=== PATIENT | male | born 1975 | race African-American/Black ===

== ENCOUNTER 2018-05-28 20:12 | Emergency (ER) | payer SELFPAY ==
[2018-05-28] MEDS ORDERED: NA CHLORIDE 0.9% 1,000 ML ONE (21:32)
[2018-05-28 21:51] LABS: Absolute Lymphocytes (CBC) 0.4 K/uL (0.7-4.9); Absolute Monocytes 0.5 K/uL (0.1-1.3); Absolute Neutrophil 7.9 K/uL (1.8-8.0); Basophils % 0.8 % (0-1.3); Eosinophils % 0.1 % (0-4.4); Hematocrit 44.6 % (39.6-49.0); Lymphocytes % 4.7 % (15.3-44.8); MCH 31.3 pg (27.0-35.0); MCV 92.5 fL (80-100); MPV 10.6 fL (7.6-11.3); Monocytes % 6.1 % (3.3-12.3); RBC Red Blood Cell Count 4.82 M/uL (4.33-5.43)
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
[2018-05-28 22:10] LABS: Blood Morphology Comment NOT SEEN (NOT SEEN); Platelet Estimate ADEQ; Urine White Blood Cell Casts OK
[2018-05-28 22:11] LABS: BUN Blood Urea Nitrogen 10 mg/dL (7-18); Bicarbonate 23 mmol/L (21-32); Glucose Level 97 mg/dL (74-106); Potassium 4.6 mmol/L (3.5-5.1); Sodium Level 138 mmol/L (136-145)
[2018-05-28] MEDS ORDERED: HYDROCODONE/APAP 5/325 MG TAB ONE (22:27)
[2018-05-28] MEDS ORDERED: KETOROLAC 30 MG/ML INJ ONE (22:27)
--- NOTE | 2018-05-29 12:35 | EKG ---
Test Date: 2018-05-28 Test Time: 20:22:38 Business Investor: YOLANDA MEASUREMENT RESULTS: Intervals: Rate: 88 [place]: 156 QRSD: 84 QT: 390 QTc: 471 [place]: P: 81 [place]: 156 QRS: 76 T: 75 INTERPRETIVE STATEMENTS: Normal sinus rhythm Normal ECG No previous ECG available for comparison Electronically Signed On 05-29-18 12:32:54 APPLIQUE CUTTER by Fernando Keene
== END 2018-05-28 22:59 | disposition home or self-care (01) ==
LOC: ER 20:12
DX: S22.41XA Multiple fractures of ribs, right side, initial encounter for closed fracture (principal); V18.0XXA Pedal cycle driver injured in noncollision transport accident in nontraffic accident, initial encounter; Y92.410 Unspecified street and highway as the place of occurrence of the external cause; Y93.89 Activity, other specified; F17.210 Nicotine dependence, cigarettes, uncomplicated
CPT/HCPCS: 36415; 70450; 71250; 72125; 80048; 85025; 93005; 96360; 96361; 96372; 99284; J7030

== ENCOUNTER 2019-08-06 05:36 | Emergency (ER) | payer SELFPAY ==
--- NOTE | 2019-08-06 07:55 | RAD REPORT ---
EXAM DESCRIPTION: RAD - Hip Left 2 View - 08/06/2019 6:39 am CLINICAL HISTORY: Fall, left hip pain COMPARISON: None. FINDINGS: AP and frogleg views of the left hip were obtained. There is no fracture or dislocation. N o acute or destructive bony process seen. Small rounded bone density adjacent to the superior acetab ular rim is not suspected to be acute. No soft tissue abnormality. IMPRESSION: Negative left hip examination for acute or significant findings. Continued, unexplained symptoms can be further addressed with MR imaging of the left hip.
--- NOTE | 2019-08-06 08:24 | RAD REPORT ---
EXAM DESCRIPTION: RAD - Femur Left - 08/06/2019 7:34 am CLINICAL HISTORY: Persistent hip and leg pain following fall COMPARISON: None. FINDINGS: No fracture changes are identifiable. Small rounded bone density along the superior acetab ular rim is not suspected to be an acute bone avulsion. There is no dislocation or periosteal reacti on noted. No acute or suspicious bony finding. No air or foreign body in the soft tissues. No signifi cant soft tissue finding identifiable. IMPRESSION: Negative left femur examination for acute or significant finding.
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
--- NOTE | 2019-08-06 08:28 | EDPHYS ---
Physician Documentation [facility] Name: Hugo Wyatt Jr Age: 44 yrs Sex: Male : 1975 Arrival Date: 08/06/2019 Time: 05:37 Bed 15 Private MD: ED Physician Austin Medina HPI: 08/06 07:32 This 44 yrs old Black Male presents to ER via Ambulatory with complaints of Hip Pain. rn 07:36 The patient or guardian reports an injury, pain. that occurred outdoors, sustained from rn a fall, There is no obvious deformity, The patient is able to self ambulate. The patient is able to bear their full body weight. The complaints affect the left hip. Onset: The symptoms/episode began/occurred 3 week(s) ago. Modifying factors: The symptoms are alleviated by nothing, the symptoms are aggravated by any movement, weight bearing. Severity of symptoms: At their worst the symptoms were moderate, in the emergency department the symptoms are unchanged. The patient has not experienced similar symptoms in the past. Reports around [place] fell, slipped on concrete, landed on left side, reports left hip and left thigh pain. Hurts to ambulate. No other injury. No back pain. Doesn't feel like anything broken.. Historical: - Allergies: 05:49 No Known Allergies; ea - Home Meds: 05:49 None [Active]; ea - PMHx: 05:49 Seizures; ea - PSHx: 05:49 None; ea - Immunization history:: Adult Immunizations up to date. - Social history:: Smoking status: Patient reports the use of cigarette tobacco products, smokes one-half pack cigarettes per day. - Ebola Screening: : No symptoms or risks identified at this time. - Family history:: not pertinent. - Hospitalizations: : No recent hospitalization is reported. ROS: 07:36 Constitutional: Negative for fever, chills, and weight loss, Eyes: Negative for injury, rn pain, redness, and discharge, Neck: Negative for injury, pain, and swelling, Cardiovascular: Negative for chest pain, palpitations, and edema, Respiratory: Negative for shortness of breath, cough, wheezing, and pleuritic chest pain, Abdomen/GI: Negative for abdominal pain, nausea, vomiting, diarrhea, and constipation, Back: Negative for injury and pain, MS/Extremity: + left hip and thigh pain Skin: Negative for injury, rash, and discoloration, Neuro: Negative for headache, weakness, numbness, tingling, and seizure. Exam: 07:36 Constitutional: This is a well developed, well nourished patient who is awake, alert, rn and in no acute distress. Head/Face: Normocephalic, atraumatic. Neck: Trachea midline. Supple, full range of motion without nuchal rigidity, or vertebral point tenderness. Chest/axilla: Normal chest wall appearance and motion. Nontender with no deformity. No lesions are appreciated. Back: No spinal tenderness. No costovertebral tenderness. Full range of motion. Skin: Warm, dry with normal turgor. Normal color with no rashes, no lesions, and no evidence of cellulitis. MS/ Extremity: Pulses equal, no cyanosis. Neurovascular intact. + pain with ROM left hip, no focal tenderness below left knee, + mild tenderness left anterior thigh without swelling or discoloration, no deformity. Neuro: Awake and alert, GCS 15, oriented to person, place, time, and situation. Cranial nerves II-XII grossly intact. Motor strength 5/5 in all extremities. Sensory grossly intact. Vital Signs: 05:49 BP 157 / 99; Pulse 88; Resp 16; Temp 97.2; Pulse Ox 100% ; Weight 79.38 kg; Height 6 ea ft. 1 in. (185.42 cm); Pain 9/10; 06:43 BP 157 / 95; Pulse 78; Resp 18; Pulse Ox 98% on R/A; ea 05:49 Body Mass Index 23.09 (79.38 kg, 185.42 cm) ea MDM: 06:59 Patient medically screened. rn 08:25 Differential diagnosis: hip fracture, intertrochanteric fracture, femoral neck rn fracture, femoral shaft fracture, bursitis. Data reviewed: vital signs, nurses notes, radiologic studies, plain films, and as a result, I will discharge patient. Test interpretation: by ED physician or midlevel provider: plain radiologic studies, Xray left hip and femur neg for acute fracture/dislocation. Counseling: I had a detailed discussion with the patient and/or guardian regarding: the historical points, exam findings, and any diagnostic results supporting the discharge/admit diagnosis, radiology results, the need for outpatient follow up, to return to the emergency department if symptoms worsen or persist or if there are any questions or concerns that arise at home. Special discussion: I discussed with the patient/guardian in detail that at this point there is no indication for admission to the hospital. It is understood, however, that if the symptoms persist or worsen the patient needs to return immediately for re-evaluation. ED course: If persists, recommend MRI.. 08/06 06:22 Order name: XRAY Hip LEFT 2 view; Complete Time: 08:22 ea 08/06 07:07 Order name: XRAY Femur LEFT; Complete Time: 08:25 ss Administered Medications: No medications were administered Disposition: 08/06/19 08:28 Discharged to Home. Impression: Contusion of left hip, Contusion of left thigh. - Condition is Stable. - Discharge Instructions: Contusion, Hip Pain. - Medication Reconciliation Form, Thank You Letter, Antibiotic Education, Prescription Opioid Use, Work release form form. - Follow up: Private Physician; When: As needed; Reason: Recheck today's complaints, Re-evaluation by your physician. - Problem is an ongoing problem. - Symptoms have improved. Signatures: Dispatcher [employer] EDMS Austin Medina MD MD rn Smirch, Shelby, RN RN ss Antunez, Elena, RN RN ea Corrections: (The following items were deleted from the chart) 08:44 08:28 08/06/2019 08:28 Discharged to Home. Impression: Contusion of left hip; Contusion ss of left thigh. Condition is Stable. Forms are Medication Reconciliation Form, Thank You Letter, Antibiotic Education, Prescription Opioid Use. Follow up: Private Physician; When: As needed; Reason: Recheck today's complaints, Re-evaluation by your physician. Problem is an ongoing problem. Symptoms have improved. rn
[2019-08-06 08:50] VITALS: TEMP 97.2
[2019-08-06 08:51] VITALS: BP 157/95; O2SAT 98
== END 2019-08-06 08:44 | disposition home or self-care (01) ==
LOC: ER 05:36
DX: S70.02XA Contusion of left hip, initial encounter (principal); S70.12XA Contusion of left thigh, initial encounter; W01.198A Fall on same level from slipping, tripping and stumbling with subsequent striking against other object, initial encounter; Y93.01 Activity, walking, marching and hiking; Y92.89 Other specified places as the place of occurrence of the external cause; F17.210 Nicotine dependence, cigarettes, uncomplicated
CPT/HCPCS: 99283

== ENCOUNTER 2019-12-12 10:42 | Emergency (ER) | payer OTHER, SELFPAY ==
[2019-12-12] MEDS ORDERED: KETOROLAC 30 MG/ML INJ ONE (11:22)
[2019-12-12] MEDS ORDERED: dexAMETHasone 10 MG/ML VIAL ONE (11:22)
--- NOTE | 2019-12-12 12:14 | RAD REPORT ---
EXAM DESCRIPTION: RAD - Thoracic Spine Ap/Lat - 12/12/2019 11:53 am CLINICAL HISTORY: PAIN Radiculopathy COMPARISON: No comparisons FINDINGS: The thoracic spine vertebral body heights and disc spaces are largely maintained. No acute compression fracture. No significant malalignment. IMPRESSION: No acute finding demonstrated.
[2019-12-12 14:06] VITALS: TEMP 98; O2SAT 99
[2019-12-12 14:07] VITALS: BP 141/99
--- NOTE | 2019-12-14 17:56 | EDPHYS ---
Physician Documentation [facility] Name: Hugo Wyatt Jr Age: 44 yrs Sex: Male : 1975 Arrival Date: 12/12/2019 Time: 10:45 Bed 2 Private MD: ED Physician Kaden Castillo HPI: 12/11 12:01 This 44 yrs old Black Male presents to ER via EMS with complaints of Back Pain, Leg jr8 Pain. 12:02 The patient presents with pain that is acute. The symptoms are located in the lumbar jr8 area, left low back and left mid back. Onset: The symptoms/episode began/occurred acutely, today. The pain radiates to the left leg. Associated signs and symptoms: The patient has no apparent associated signs or symptoms. The problem was sustained by pulling down on large bar. Modifying factors: The patient symptoms are alleviated by nothing, the patient symptoms are aggravated by any movement. Severity of symptoms: At their worst the symptoms were moderate, in the emergency department the symptoms are unchanged. The patient has not experienced similar symptoms in the past. The patient has not recently seen a physician. Patient while at work was pulling down on large chain bar. [place] pop in back. Since then has had pain to left back . Historical: - Allergies: 10:49 No Known Allergies; sv - Home Meds: 10:49 None [Active]; sv - PMHx: 10:49 Seizures; compression fx; sv - PSHx: 10:49 neck; sv - Immunization history:: Adult Immunizations up to date. - Social history:: Smoking status: . ROS: 12:02 Eyes: Negative for injury, pain, redness, and discharge, ENT: Negative for injury, jr8 pain, and discharge, Neck: Negative for injury, pain, and swelling, Cardiovascular: Negative for chest pain, palpitations, and edema, Respiratory: Negative for shortness of breath, cough, wheezing, and pleuritic chest pain, Abdomen/GI: Negative for abdominal pain, nausea, vomiting, diarrhea, and constipation, MS/Extremity: Negative for injury and deformity, Skin: Negative for injury, rash, and discoloration, Neuro: Negative for headache, weakness, numbness, tingling, and seizure. 12:02 Back: Positive for decreased range of motion, pain at rest, pain with movement, radiated pain. Exam: 12:11 Eyes: Pupils equal round and reactive to light, extra-ocular motions intact. Lids and jr8 lashes normal. Conjunctiva and sclera are non-icteric and not injected. Cornea within normal limits. Periorbital areas with no swelling, redness, or edema. ENT: Nares patent. No nasal discharge, no septal abnormalities noted. Tympanic membranes are normal and external auditory canals are clear. Oropharynx with no redness, swelling, or masses, exudates, or evidence of obstruction, uvula midline. Mucous membranes moist. Neck: Trachea midline, no thyromegaly or masses palpated, and no cervical lymphadenopathy. Supple, full range of motion without nuchal rigidity, or vertebral point tenderness. No Meningismus. Chest/axilla: Normal chest wall appearance and motion. Nontender with no deformity. No lesions are appreciated. Cardiovascular: Regular rate and rhythm with a normal S1 and S2. No gallops, murmurs, or rubs. Normal PMI, no JVD. No pulse deficits. Respiratory: Lungs have equal breath sounds bilaterally, clear to auscultation and percussion. No rales, rhonchi or wheezes noted. No increased work of breathing, no retractions or nasal flaring. Abdomen/GI: Soft, non-tender, with normal bowel sounds. No distension or tympany. No guarding or rebound. No evidence of tenderness throughout. Skin: Warm, dry with normal turgor. Normal color with no rashes, no lesions, and no evidence of cellulitis. MS/ Extremity: Pulses equal, no cyanosis. Neurovascular intact. Full, normal range of motion. Neuro: Awake and alert, GCS 15, oriented to person, place, time, and situation. Cranial nerves II-XII grossly intact. Motor strength 5/5 in all extremities. Sensory grossly intact. Cerebellar exam normal. Normal gait. 12:11 Back: pain, that is moderate, of the left low back and left mid back, ROM is painful, normal spinal alignment noted, CVA tenderness, is absent, vertebral tenderness, is not appreciated, muscle spasm, is appreciated in the left low back and left mid back, Mild tenderness also noted to left SI joint region . Vital Signs: 10:39 BP 136 / 87; Pulse 94; Resp 15; Temp 98.8; Pulse Ox 100% ; Weight 80.74 kg; Height 6 sv ft. 1 in. (185.42 cm); Pain 8/10; 12:11 BP 144 / 100; Pulse 90; Resp 16; Pulse Ox 96% ; sv 12:52 BP 136 / 104; Pulse 86; Resp 14; Temp 98; Pulse Ox 99% on R/A; Pain 3/10; ch 13:55 BP 141 / 99; Pulse 88; Resp 16; Pulse Ox 99% ; sv 10:39 Body Mass Index 23.48 (80.74 kg, 185.42 cm) sv MDM: 10:46 Patient medically screened. jr8 13:33 Data reviewed: vital signs, nurses notes, radiologic studies, plain films, and as a jr8 result, I will discharge patient. Data interpreted: Pulse oximetry: on room air is 99 %. Interpretation: normal. Counseling: I had a detailed discussion with the patient and/or guardian regarding: the presence of at least one elevated blood pressure reading (>120/80) during this emergency department visit, radiology results, the need for outpatient follow up, a family practitioner, to return to the emergency department if symptoms worsen or persist or if there are any questions or concerns that arise at home. Response to treatment: the patient's symptoms have markedly improved after treatment. 12/11 11:12 Order name: XRAY Thoracic Spine (Ap/lat); Complete Time: 12:26 jr8 12/11 11:12 Order name: IV; Complete Time: 11:35 jr8 Administered Medications: 11:20 Drug: TORadol - Ketorolac 15 mg Route: IVP; Site: right antecubital; sv 12:08 Follow up: Response: No adverse reaction sv 11:22 Drug: Decadron - Dexamethasone 10 mg Route: IVP; Site: right antecubital; sv 12:08 Follow up: Response: No adverse reaction sv 12:08 Drug: Robaxin 1 grams Route: IVPB; Infused Over: 1 hrs; Site: right antecubital; sv 13:10 Follow up: Response: No adverse reaction; IV Status: Completed infusion; IV Intake: sv 100ml Disposition: 15:35 Co-signature as Attending Physician, Kaden Castillo MD I agree with the assessment and kdr plan of care. Disposition: 12/12/19 13:35 Discharged to Home. Impression: Low back pain, Muscle spasm of back. - Condition is Stable. - Discharge Instructions: Back Pain, Adult, Musculoskeletal Pain, Heat Therapy. - Prescriptions for Ibuprofen 800 mg Oral Tablet - take 1 tablet by ORAL route every 12 hours As needed take with food; 20 tablet. Robaxin 500 mg Oral Tablet - take 2 tablet by ORAL route every 6 hours As needed; 40 tablet. Medrol (Mohan) 4 mg Oral Tablets, Dose Pack - take 1 tablet by ORAL route as directed - follow package instructions; 1 packet. - Work release form, Medication Reconciliation Form, Thank You Letter, Antibiotic Education, Prescription Opioid Use form. - Follow up: Private Physician; When: Upon discharge from the Emergency Department; Reason: Recheck today's complaints, Continuance of care, Re-evaluation by your physician. - Problem is new. - Symptoms have improved. Signatures: Dispatcher [employer] Francia Farooq RN RN Kaden Hardy MD MD kdr Roszak, Josh, PA PA jr8 Corrections: (The following items were deleted from the chart) 13:56 13:35 12/12/2019 13:35 Discharged to Home. Impression: Low back pain; Muscle spasm of sv back. Condition is Stable. Forms are Medication Reconciliation Form, Thank You Letter, Antibiotic Education, Prescription Opioid Use. Follow up: Private Physician; When: Upon discharge from the Emergency Department; Reason: Recheck today's complaints, Continuance of care, Re-evaluation by your physician. Problem is new. Symptoms have improved. jr8
--- NOTE | 2019-12-14 17:56 | ER ---
Nurse's Notes [facility] Name: Hugo Wyatt Jr Age: 44 yrs Sex: Male : 1975 Arrival Date: 12/12/2019 Time: 10:45 Bed 2 Private MD: Diagnosis: Low back pain;Muscle spasm of back Presentation: 12/11 10:39 Chief complaint: EMS states: pt was at work trying to loosen up a chain and felt sv something pull, c/o neck, back, and left leg pain. Denies fall or head injury and LOC. BP 145/95 HR-99 97% RA. Coronavirus screen: Proceed with normal triage. Patient denies a cough. Patient denies shortness of breath or difficulty breathing. Patient denies measured and/or subjective temperature greater than 100.4F prior to today's visit. Patient denies travel on a cruise ship or to a country the [facility] currently lists as an affected area. Patient denies contact with known and/or suspected case of COVID-19. Ebola Screen: No symptoms or risks identified at this time. Initial Sepsis Screen: Does the patient meet any 2 criteria? HR > 90 bpm. No. Patient's initial sepsis screen is negative. Does the patient have a suspected source of infection? No. Patient's initial sepsis screen is negative. Risk Assessment: Do you want to hurt yourself or someone else? Patient reports no desire to harm self or others. Onset of symptoms was December 12, 2019. 10:39 Method Of Arrival: EMS: [facility] sv 10:39 Acuity: JOHN 4 sv Triage Assessment: 10:49 General: Appears in no apparent distress. uncomfortable, slender, Behavior is calm, sv cooperative, appropriate for age. Pain: Complains of pain in back of neck, back and left leg Pain currently is 8 out of 10 on a pain scale. Pain began 30 min ago. Is continuous. Neuro: Level of Consciousness is awake, alert, obeys commands, Oriented to person, place, time, situation, Moves all extremities. Full function. Respiratory: Airway is patent Respiratory effort is even, unlabored, Respiratory pattern is regular, symmetrical. Derm: Skin is pink, warm \T\ dry. Historical: - Allergies: 10:49 No Known Allergies; sv - Home Meds: 10:49 None [Active]; sv - PMHx: 10:49 Seizures; compression fx; sv - PSHx: 10:49 neck; sv - Immunization history:: Adult Immunizations up to date. - Social history:: Smoking status: . Screenin:51 Abuse screen: Denies threats or abuse. Denies injuries from another. Nutritional sv screening: No deficits noted. Tuberculosis screening: No symptoms or risk factors identified. Fall Risk None identified. Assessment: 12:08 Reassessment: Patient appears in no apparent distress at this time. No changes from previously documented assessment. Patient and/or family updated on plan of care and expected duration. Pain level reassessed. Patient is alert, oriented x 3, equal unlabored respirations, skin warm/dry/pink. 12:52 Reassessment: Patient appears in no apparent distress at this time. Patient and/or ch family updated on plan of care and expected duration. Pain level reassessed. Patient is alert, oriented x 3, equal unlabored respirations, skin warm/dry/pink. Patient states feeling better. Patient states symptoms have improved. 13:54 Reassessment: Patient appears in no apparent distress at this time. Patient and/or sv family updated on plan of care and expected duration. Pain level reassessed. Patient is alert, oriented x 3, equal unlabored respirations, skin warm/dry/pink. Patient states feeling better. Patient states symptoms have improved. Vital Signs: 10:39 BP 136 / 87; Pulse 94; Resp 15; Temp 98.8; Pulse Ox 100% ; Weight 80.74 kg; Height 6 sv ft. 1 in. (185.42 cm); Pain 8/10; 12:11 BP 144 / 100; Pulse 90; Resp 16; Pulse Ox 96% ; sv 12:52 BP 136 / 104; Pulse 86; Resp 14; Temp 98; Pulse Ox 99% on R/A; Pain 3/10; ch 13:55 BP 141 / 99; Pulse 88; Resp 16; Pulse Ox 99% ; sv 10:39 Body Mass Index 23.48 (80.74 kg, 185.42 cm) ED Course: 10:45 Patient arrived in ED. sv 10:45 Francia Lutz RN is Primary Nurse. sv 10:46 Kristopher Brown PA is PHCP. jr8 10:46 Kaden Castillo MD is Attending Physician. jr8 10:48 Triage completed. sv 10:49 Arm band placed on. sv 10:51 Awaiting ED provider evaluation. sv 10:51 Patient has correct armband on for positive identification. Bed in low position. Call sv light in reach. Side rails up X2. Pulse ox on. NIBP on. Door closed. Head of bed elevated. 11:10 Inserted saline lock: 20 gauge in right antecubital area, using aseptic technique. sv Blood collected. Flushed right antecubital with 5 ml normal saline. 11:45 XRAY Thoracic Spine (Ap/lat) In Process Unspecified. EDMS 12:12 Awaiting radiology results. sv 13:55 No provider procedures requiring assistance completed. IV discontinued, intact, sv bleeding controlled, No redness/swelling at site. Pressure dressing applied. Administered Medications: 11:20 Drug: TORadol - Ketorolac 15 mg Route: IVP; Site: right antecubital; sv 12:08 Follow up: Response: No adverse reaction sv 11:22 Drug: Decadron - Dexamethasone 10 mg Route: IVP; Site: right antecubital; sv 12:08 Follow up: Response: No adverse reaction sv 12:08 Drug: Robaxin 1 grams Route: IVPB; Infused Over: 1 hrs; Site: right antecubital; sv 13:10 Follow up: Response: No adverse reaction; IV Status: Completed infusion; IV Intake: sv 100ml Intake: 13:10 IV: 100ml; Total: 100ml. sv Outcome: 13:35 Discharge ordered by . jr8 13:55 Discharged to home via wheelchair. sv 13:55 Condition: stable 13:55 Discharge instructions given to patient, Instructed on discharge instructions, follow up and referral plans. medication usage, Demonstrated understanding of instructions, follow-up care, medications, Prescriptions given X 3. 13:56 Patient left the ED. sv Signatures: Dispatcher [employer] EDMS Jaye Vo RN RN ch Verde, Stephanie, RN RN sv Roszak, Josh, ALBERTINA ENG jr8
== END 2019-12-12 13:56 | disposition home or self-care (01) ==
LOC: ER 10:42
DX: M62.830 Muscle spasm of back (principal)
CPT/HCPCS: 72070; 96365; 96375; 99284; J1100; J2800

== ENCOUNTER 2021-07-04 09:17 | Emergency (ER) | payer OTHER ==
--- OUTSIDE RECORDS SUMMARY | 2021-07-04 09:20 | XMS REPORT | Continuity of Care Document ---
:1975 Author Organization [facility] t Address [address] [place] [address] [address] [place] [address] Care Team Providers Name Role Phone Daniel XAVEIR Attending Clinician Unavailable Lab, Fam Pob I Attending Clinician Unavailable Daniel Valdivia Attending Clinician Doctor Unassigned, Name Attending Clinician Unavailable Payers Payer Name Policy Type Policy Number Effective Date Expiration Date [address] [facility] [id number] 2020 [employer] 00:00:00 Problems This patient has no known problems. Allergies, Adverse Reactions, Alerts Allergy Allergy Status Severity Reaction(s) Onset Inactive Treating Comm ents Source Name Type Date Date Clinician NO KNOWN Drug Active Univers ALLERGIE Class [facility] of [facility] Social History Social Habit Start Date Stop Date Quantity Comments Source Sex Assigned At Uni versity [facility] Exposure to SARS-CoV-2 Not sure [facility] [place] [facility] Smoking Status Start Date Stop Date Source Unknown if ever smoked Universit y [facility] Medications This patient has no known medications. Procedures This patient has no known procedures. Encounters Start End Encounter Admission Attending Care Care Encounter Source Date/Time Date/Time Type Type Clinicians Facility Department ID 2020-02-03 2020-02-03 Outpatient R JUAN [facility] [id number] Univers 08:40:00 08:40:00 XIAO salguero [facility] 2020-02-03 2020-02-03 Laboratory Lab, Adc Fam Pob I [facility] 1.2. [id number] Univers 08:14:53 08:34:53 Only Xiao Xavier [facility] [id number] ity [facility] [id number] [place] Professio [phone] [place] [address] [address] 2020-02-03 2020-02-03 Letter Doctor IAN [id number] Univers 00:00:00 00:00:00 (Out) Unassigned, LANDRY [id number] ity of [place] [facility] [id number] [place] [phone] [address] 2020-02-03 2020-02-03 Letter Doctor IAN [id number] Univers 00:00:00 00:00:00 (Out) Unassigned, LANDRY [id number] ity of [place] [facility] [id number] [place] [phone] [address] 2020-02-01 2020-02-01 Outpatient R [facility] [id number] Univers 15:00:00 15:00:00 ity of [facility] Results This patient has no known results.
[2021-07-04] MEDS ORDERED: KETOROLAC 30 MG/ML INJ ONE (09:33)
[2021-07-04] MEDS ORDERED: NA CHLORIDE 0.9% 1,000 ML ONE (09:33)
[2021-07-04] MEDS ORDERED: DIAZEPAM 10 MG/2 ML INJ SYRINGE ONE (09:35)
[2021-07-04 09:51] LABS: Absolute Lymphocytes (CBC) 0.6 K/uL (0.7-4.9); Hematocrit 45.1 % (39.6-49.0); Lymphocytes % 9.8 % (15.3-44.8); MPV 9.3 fL (7.6-11.3); RBC Red Blood Cell Count 4.88 M/uL (4.33-5.43)
[2021-07-04 10:09] LABS: BUN Blood Urea Nitrogen 6 mg/dL (7-18); Bicarbonate 27 mmol/L (21-32); Glucose Level 91 mg/dL (74-106); Potassium 4.5 mmol/L (3.5-5.1); Sodium Level 136 mmol/L (136-145)
[2021-07-04] MEDS ORDERED: MORPHINE 4 MG/ML SYR ONE (11:11)
--- NOTE | 2021-07-04 11:34 | RAD REPORT ---
EXAM DESCRIPTION: CT - Chest Abdomen Pelvis W Cont - 07/04/2021 10:52 am CLINICAL HISTORY: Chest and abdominal pain status post fall COMPARISON: 2018 TECHNIQUE: Computed axial tomography of the chest, abdomen and pelvis was obtained. 100 cc Isovue-30 0 was administered intravenously. Oral contrast was not requested. This limits evaluation of bowel. All CT scans are performed using dose optimization technique as appropriate and may include automated exposure control or mA/KV adjustment according to patient size. FINDINGS: A pleural effusion is not present. A pulmonary contusion is not seen. No pneumothorax A mediastinal hematoma is not present. The ascending thoracic aorta measures 3.8 centimeters Fatty liver. Small cyst. Small left inguinal hernia Spleen, pancreas, adrenals and kidneys appear unremarkable. Bladder is mildly distended. Mildly displaced fracture posterior left twelfth rib. Mildly displaced fracture posterior eleventh ri b. Nondisplaced fracture posterior tenth rib Old right rib fractures IMPRESSION: Fractures posterior left tenth, eleventh and twelfth ribs
[2021-07-04 11:37] LABS: Urine Blood Negative (Negative); Urine Glucose Negative (Negative); Urine Protein Negative (Negative)
--- NOTE | 2021-07-04 12:28 | ER ---
Nurse's Notes [facility] Name: Hugo Wyatt Age: 46 yrs Sex: Male : 1975 Arrival Date: 07/04/2021 Time: 09:24 Bed 16 Private MD: Diagnosis: Multiple fractures of ribs, left side-left tength, eleventh and twelth Presentation: 07/04 09:24 Chief complaint: Patient states: left rib and back pain. pt reported having a seizure buckley x2days ago and hit coffee table. Coronavirus screen: Client denies travel out of the [place] in the last 14 days. Ebola Screen: Patient denies exposure to infectious person. No symptoms or risks identified at this time. Initial Sepsis Screen: Does the patient meet any 2 criteria? No. Patient's initial sepsis screen is negative. Does the patient have a suspected source of infection? No. Patient's initial sepsis screen is negative. Risk Assessment: Do you want to hurt yourself or someone else? Patient reports no desire to harm self or others. Onset of symptoms was July 02, 2021. 09:24 Method Of Arrival: EMS: [facility] buckley 09:24 Acuity: JOHN 3 buckley 09:24 Acuity: JOHN 4 buckley Triage Assessment: :28 General: Appears uncomfortable. General: Behavior is calm, cooperative. Pain: Complains buckley of pain in diaphragm and left breast Pain Quality of pain is described as sharp. Musculoskeletal: Reports Pain is 10 out of 10 on a pain scale. Historical: - Allergies: : No Known Allergies; buckley - PMHx: : compression fx; Seizures; buckley - Immunization history:: Adult Immunizations up to date. - Social history:: Smoking status: Patient reports the use of cigarette tobacco products, unknown amount. Screenin:29 Abuse screen: Denies threats or abuse. Denies injuries from another. Nutritional buckley screening: No deficits noted. Tuberculosis screening: No symptoms or risk factors identified. Fall Risk IV access (20 points). Assessment: 11:00 Reassessment: No changes from previously documented assessment. Patient and/or family jg9 updated on plan of care and expected duration. Pain level reassessed. Pain remains in left rib/back region 01/21-provider notified. 11:18 Reassessment: Patient informed on need for urine sample, urinal at bedside. jg9 12:17 Reassessment: Patient and/or family updated on plan of care and expected duration. Pain jg9 level reassessed. Patient states feeling better. Vital Signs: 09:24 BP 183 / 113; Pulse 108; Resp 18; Temp 98.3; Pulse Ox 98% ; Weight 77.11 kg; Height 6 buckley ft. 1 in. (185.42 cm); 09:45 BP 142 / 97; Pulse 105; Resp 21; Pulse Ox 92% on R/A; jg9 10:00 BP 141 / 100; Pulse 94; Resp 17 S; Pulse Ox 100% on R/A; jg9 10:24 BP 141 / 96; Pulse 90; Resp 18; Pulse Ox 100% on R/A; buckley 11:25 BP 142 / 120; Pulse 94; Resp 18; Pulse Ox 98% on R/A; buckley 12:07 BP 142 / 101; Pulse 99; Resp 18; Pulse Ox 97% on R/A; buckley 09:24 Body Mass Index 22.43 (77.11 kg, 185.42 cm) buckley ED Course: 09:24 Patient arrived in ED. buckley 09:25 Melvin Quiroga PA is PHCP. cp 09:25 Melvin Morin MD is Attending Physician. cp 09:27 Triage completed. buckley 09:28 Arm band placed on. buckley 09:29 Patient has correct armband on for positive identification. Bed in low position. buckley 09:29 No provider procedures requiring assistance completed. Maintain EMS IV. Dressing buckley intact. Site clean \T\ dry. Gauge \T\ site: 18g LAC. 09:41 Basic Metabolic Panel Sent. buckley 09:41 CBC with Diff Sent. buckley 09:41 Type And Screen Sent. buckley 10:04 Delisa Baig is Primary Nurse. jg9 10:52 CT Chest, Abdomen, Pelvis - W/Contrast In Process Unspecified. EDMS 11:00 Patient requests pain medication. jg9 11:00 Appears restless. jg9 11:00 Awaiting lab results, Awaiting radiology results. jg9 12:15 INCENTIVE SPIROMETRY Sent. jg9 12:16 No apparent distress. Resting quietly. Awaiting disposition. jg9 12:16 Incentive spirometer education provided by an Emergency Department nursing staff member.jg9 13:27 IV discontinued, No redness/swelling at site. Pressure dressing applied. buckley Administered Medications: 09:40 Drug: Diazepam 5 mg Route: IVP; Site: left antecubital; buckley 10:28 Follow up: Response: No adverse reaction buckley 09:41 Drug: NS 0.9% 1000 ml Route: IV; Rate: 1 bolus; Site: left antecubital; buckley 11:00 Follow up: IV Status: Completed infusion; IV Intake: 1000ml j9 09:41 Drug: Ketorolac 15 mg Route: IVP; Site: left antecubital; buckley 10:28 Follow up: Response: No adverse reaction buckley 11:17 Drug: morphine 4 mg Route: IVP; Site: left antecubital; jg9 12:09 Follow up: Response: No adverse reaction; Pain is decreased; RASS: Alert and Calm (0) jg9 13:27 Drug: fentaNYL Patch (50 mcg/hr) 1 patches Route: Transdermal; Site: affected area; buckley 13:27 Follow up: Response: No adverse reaction buckley 13:27 Drug: Keppra (levETIRAcetam) 1000 mg Route: PO; buckley 13:27 Follow up: Response: No adverse reaction buckley Intake: 11:00 IV: 1000ml; Total: 1000ml. jg9 Outcome: 12:27 Discharge ordered by MD. tao 13:39 Patient left the ED. buckley Signatures: Dispatcher [employer] EDMelvin Aponte PA PA cp Gilmore, Jennifer jg9 April Moreira buckley
--- NOTE | 2021-07-04 12:28 | EDPHYS ---
Physician Documentation [facility] Name: Hugo Wyatt Age: 46 yrs Sex: Male : 1975 Arrival Date: 07/04/2021 Time: 09:24 Bed 16 Private MD: ED Physician Melvin Morin HPI: 07/04 09:35 This 46 yrs old Black Male presents to ER via EMS with complaints of Pain. cp 09:35 The patient or guardian reports chest pain that is located primarily in the left cp lateral anterior chest and left lateral posterior chest. Onset: 2 day(s) ago, and became worse today. Associated signs and symptoms: Pertinent positives: left lateral upper abdomen pain, Pertinent negatives: cough, wheezing. 09:35 The chest pain is described as sharp. cp 09:35 Severity of pain: in the emergency department the pain has improved mildly. Patient cp reports having seizure 2 days ago causing him to strike left side of chest and abdomen against table. Patient reports history of seizures, but boyer not currently take any meds. Reports previous seizure medications caused excessive drowsiness so he stopped taking medication. Historical: - Allergies: 09:28 No Known Allergies; buckley - PMHx: 09:28 compression fx; Seizures; buckley - Immunization history:: Adult Immunizations up to date. - Social history:: Smoking status: Patient reports the use of cigarette tobacco products, unknown amount. ROS: 09:40 Constitutional: Negative for body aches, chills, fever, poor PO intake. cp 09:40 Eyes: Negative for injury, pain, redness, and discharge. cp 09:40 Neck: Negative for pain with movement, pain at rest, stiffness. 09:40 Cardiovascular: Positive for chest pain, of the left lateral posterior chest and left lateral anterior chest. 09:40 Abdomen/GI: Positive for abdominal pain, of the anterior aspect of left lateral abdomen and posterior aspect of left lateral abdomen, Negative for vomiting, diarrhea, constipation. 09:40 : Negative for urinary symptoms, testicular pain 09:40 Skin: Negative for rash. 09:40 Neuro: Positive for seizure activity, Negative for altered mental status, headache, weakness. 09:40 All other systems are negative. Exam: 09:45 Constitutional: The patient appears in no acute distress, alert, awake, cp non-diaphoretic, non-toxic, well developed, well nourished, in obvious pain, uncomfortable. 09:45 Head/Face: Normocephalic, atraumatic. cp 09:45 Eyes: Periorbital structures: appear normal, Conjunctiva: normal, no exudate, no injection, Lids and lashes: appear normal, bilaterally. 09:45 ENT: External ear(s): are unremarkable, Nose: is normal, Mouth: Lips: moist, Oral mucosa: moist, Posterior pharynx: Airway: no evidence of obstruction, patent. 09:45 Neck: C-spine: vertebral tenderness, is not appreciated, crepitus, is not appreciated, ROM/movement: is normal, is supple, without pain, no range of motions limitations. 09:45 Chest/axilla: Inspection: normal, Palpation: crepitus, is not appreciated, tenderness, that is severe, of the left lateral anterior chest and left lateral posterior chest. 09:45 Cardiovascular: Rate: tachycardic, Rhythm: regular, Edema: is not appreciated, JVD: is not appreciated. 09:45 Respiratory: the patient does not display signs of respiratory distress, Respirations: labored breathing, is not present, shallow respirations, that is moderate, Breath sounds: are clear throughout, no decreased breath sounds, no stridor, no wheezing. 09:45 Abdomen/GI: Inspection: abdomen appears normal, Bowel sounds: active, all quadrants, Palpation: soft, in all quadrants, severe abdominal tenderness, in the anterior aspect of left lateral abdomen and posterior aspect of left lateral abdomen, rebound tenderness, is not appreciated, voluntary guarding, is elicited in the anterior aspect of left lateral abdomen and posterior aspect of left lateral abdomen. 09:45 Back: vertebral tenderness, is not appreciated. 09:45 Skin: Exam negative for cyanosis, swelling. 09:45 Neuro: Orientation: to person, place \T\ time. Mentation: is normal, Motor: moves all fours, strength is normal. Vital Signs: 09:24 BP 183 / 113; Pulse 108; Resp 18; Temp 98.3; Pulse Ox 98% ; Weight 77.11 kg; Height 6 buckley ft. 1 in. (185.42 cm); 09:45 BP 142 / 97; Pulse 105; Resp 21; Pulse Ox 92% on R/A; jg9 10:00 BP 141 / 100; Pulse 94; Resp 17 S; Pulse Ox 100% on R/A; jg9 10:24 BP 141 / 96; Pulse 90; Resp 18; Pulse Ox 100% on R/A; buckley 11:25 BP 142 / 120; Pulse 94; Resp 18; Pulse Ox 98% on R/A; buckley 12:07 BP 142 / 101; Pulse 99; Resp 18; Pulse Ox 97% on R/A; buckley 09:24 Body Mass Index 22.43 (77.11 kg, 185.42 cm) buckley MDM: 09:27 Patient medically screened. andrews 10:00 Differential diagnosis: chest wall pain, intraabdominal injury, pneumothorax, rib cp fracture, chest wall pain, hemo pneumothorax. 12:25 Data reviewed: vital signs, nurses notes, lab test result(s), radiologic studies, CT cp scan, I have discussed the patient's presentation/case with the attending Emergency Department Physician; and as a result, I will discharge patient. 12:25 Counseling: I had a detailed discussion with the patient and/or guardian regarding: the cp historical points, exam findings, and any diagnostic results supporting the discharge/admit diagnosis, lab results, radiology results, to return to the emergency department if symptoms worsen or persist or if there are any questions or concerns that arise at home. Response to treatment: the patient's symptoms have markedly improved after treatment, VSS. Pain markedly improved with meds. No signs of respiratory distress. Will discharge to home for continued monitoring. 07/04 09:27 Order name: Basic Metabolic Panel; Complete Time: 10:53 07/04 10:53 Interpretation: Normal except: BUN 6. 07/04 09:27 Order name: CBC with Diff; Complete Time: 10:53 cp 07/04 10:53 Interpretation: Normal except: PLT 133; CÉSAR% 78.3; LYM% 9.8; LYMA 0.6. 07/04 09:27 Order name: Type And Screen; Complete Time: 10:53 07/04 09:27 Order name: CT Chest, Abdomen, Pelvis - W/Contrast; Complete Time: 11:38 cp 07/04 11:39 Interpretation: Report reviewed. 07/04 11:36 Order name: Urine Dipstick-Ancillary; Complete Time: 11:38 EDMS 07/04 11:38 Interpretation: Normal except: UKET 1+. 07/04 11:51 Order name: INCENTIVE SPIROMETRY cp 07/04 09:27 Order name: Labs collected and sent; Complete Time: 09:41 cp 07/04 09:28 Order name: Urine Dipstick-Ancillary (obtain specimen); Complete Time: 11:31 cp Administered Medications: 09:40 Drug: Diazepam 5 mg Route: IVP; Site: left antecubital; buckley 10:28 Follow up: Response: No adverse reaction buckley 09:41 Drug: NS 0.9% 1000 ml Route: IV; Rate: 1 bolus; Site: left antecubital; buckley 11:00 Follow up: IV Status: Completed infusion; IV Intake: 1000ml 9 09:41 Drug: Ketorolac 15 mg Route: IVP; Site: left antecubital; buckley 10:28 Follow up: Response: No adverse reaction buckley 11:17 Drug: morphine 4 mg Route: IVP; Site: left antecubital; jg9 12:09 Follow up: Response: No adverse reaction; Pain is decreased; RASS: Alert and Calm (0) g9 13:27 Drug: fentaNYL Patch (50 mcg/hr) 1 patches Route: Transdermal; Site: affected area; buckley 13:27 Follow up: Response: No adverse reaction buckley 13:27 Drug: Keppra (levETIRAcetam) 1000 mg Route: PO; buckley 13:27 Follow up: Response: No adverse reaction buckley Disposition Summary: 07/04/21 12:27 Discharge Ordered Location: Home cp Problem: new cp Symptoms: have improved cp Condition: Stable cp Diagnosis - Multiple fractures of ribs, left side - left tength, eleventh and twelth cp Followup: cp - With: Private Physician - When: 1 - 2 days - Reason: Recheck today's complaints Discharge Instructions: - Discharge Summary Sheet cp - Rib Fracture cp Forms: - Medication Reconciliation Form cp - Thank You Letter cp - Antibiotic Education cp - Prescription Opioid Use cp Prescriptions: - Diclofenac Sodium 75 mg Oral Tablet Sustained Release - take 1 tablet by ORAL route 2 times per day; 30 tablet; Refills: 0, Product cp Selection Permitted - Keppra 500 mg Oral Tablet - take 1 tablet by ORAL route every 12 hours; 20 tablet; Refills: 0, Product cp Selection Permitted Signatures: Dispatcher [employer] EDMS Mikel, MD MD andrews Charles Corey, PA PA cp Gilmore, Jennifer jg9 April Moreira
[2021-07-04] MEDS ORDERED: FENTANYL 25 MCG/PATCH TD ONE (12:34)
[2021-07-04] MEDS ORDERED: FENTANYL 50 MCG/PATCH TD ONE (13:00)
[2021-07-04] MEDS ORDERED: levETIRAcetam 500 MG TAB ONE (13:24)
[2021-07-04 13:45] VITALS: TEMP 98.3
[2021-07-04 13:53] VITALS: BP 142/101; O2SAT 97
== END 2021-07-04 13:39 | disposition home or self-care (01) ==
LOC: ER 09:17
DX: S22.42XA Multiple fractures of ribs, left side, initial encounter for closed fracture (principal); W22.03XA Walked into furniture, initial encounter; Z72.0 Tobacco use
CPT/HCPCS: 85025; 80048; 36415; 86900; 86850; 86901; 81003; 71260; 74177; Q9967; J3360; J7030